=== PATIENT | male | born 1965 | race Caucasian/White ===

== ENCOUNTER → 2017-04-15 | Outpatient (CLI) | payer OTHER ==
--- NOTE | 2017-04-15 20:45 | MR ---
EXAMINATION TYPE: MR knee RT wo con DATE OF EXAM: 04/15/2017 COMPARISON: 27/09/2015 HISTORY: 52-year-old male with right knee pain TECHNIQUE: Multiplanar, multisequence imaging of the right knee is performed without IV contrast. FINDINGS: ACL, PCL, MCL, and LCL complex are intact. The body of the medial meniscus is now markedly diminutive. This may relate to interval partial menis cectomy. However, there may be minimal fibers preventing a through and through radial tear of the bod y. Abnormal signal extends throughout the posterior horn contacting the femoral articular surface and there is suggestion of an additional oblique tear at the junction of the anterior horn and body also contacting the femoral articular surface. Mild diffuse thinning of medial compartment articular cartilage. Degenerative signal throughout the lateral meniscus. There may be a small peripheral tear of the post erior horn at the attachment site of the meniscal femoral ligament, sagittal image 21 and 22. This se ems to have been present in retrospect. No progressive tear is seen. No discrete chondral defect with in the lateral compartment. There is moderate focal cartilage loss along the medial patellar facet in the patellofemoral compartm ent, axial image 18. Small knee joint effusion with trace early Diop cyst. Normal popliteal artery anatomy and mild muscular atrophy. No suspicious bone marrow replacement. Extensor mechanism is intact with mild tendinosis at the patellar tendon origin and tibial insertion. IMPRESSION: 1. Suspect interval partial medial meniscectomy. However, the body of the meniscus is severely diminu tive and there may be only a few strands preventing a thorough and through radial tear. Oblique tear extending to the junction with the anterior horn and additional tear extending throughout the posteri or horn. 2. Suspect a small peripheral tear of the posterior horn lateral meniscus at the attachment site of t he meniscal femoral ligament. This is similar to 12/01/2015. No progressive lateral meniscal tear. 3. Mild diffuse thinning of medial compartment articular cartilage and focal area of moderate thickne ss cartilage loss along the medial patellar facet.
--- NOTE | 2017-04-15 20:52 | MR ---
EXAMINATION TYPE: MR knee LT wo con DATE OF EXAM: 04/15/2017 COMPARISON: NONE HISTORY: 52-year-old male with left knee pain TECHNIQUE: Multiplanar, multisequence imaging of the left knee is performed without IV contrast. FINDINGS: ACL, PCL, MCL, and LCL complex are intact. Extensive degenerative signal within the medial meniscus. Signal contact the tibial articular surface along the posterior horn suggestive of a tear. Mild to moderate irregular cartilage thinning along the mid weightbearing aspect of the medial compar tment. Some minimal subchondral cystic change along the tibial articular surface. Degenerative signal throughout the lateral meniscus with possible small peripheral tear of the [employer] ior horn at the attachment site of the meniscal femoral ligament. No focal cartilage defect within th e lateral compartment. Patellofemoral compartment articular cartilage volume is maintained. Small knee joint effusion without Diop's cyst. Extensor mechanism is intact without intermediate signal at the quadriceps insertion as well as the p atellar tendon origin and insertion. Normal popliteal artery anatomy and muscle bulk. No suspicious bone marrow replacement. IMPRESSION: 1. Extensive degenerative signal in the menisci. There is possible tear of the posterior horn of the medial meniscus and suspicion of a small peripheral tear of the posterior horn lateral meniscus at th e attachment site of the meniscofemoral ligament. 2. Mild overall medial compartmental osteoarthrosis. 3. Mild tendinosis along the extensor mechanism.
== END | disposition home or self-care (01) ==
LOC: RADMRIMAIN 12:16
PROVIDERS: ATTEND Family Medicine
DX: M17.12 Unilateral primary osteoarthritis, left knee (principal); M67.962 Unspecified disorder of synovium and tendon, left lower leg; M94.8X6 Other specified disorders of cartilage, lower leg